=== PATIENT | female | born 1970 | race Caucasian/White ===

== ENCOUNTER 2020-04-05 15:46 | Emergency (ER) | payer SELFPAY ==
[2020-04-05] MEDS ORDERED: SODIUM CHLORIDE 0.9% (FLUSH) 10 ML SYG IV PRN (16:01)
--- NOTE | 2020-04-05 16:09 | ED.PDOC ---
History of Present Illness - General Chief Complaint: Blood Pressure Problem Stated Complaint: elevated BP,swelling in hands and feet Time Seen by Provider: 04/05/20 15:53 - History of Present Illness Initial Comments: 42-year-old female without significant past medical history presents with a week of swelling to arms and legs, low energy, not feeling well and now has noticed elevated blood pressures over the last 2 days. Denies chest pain. No prior history of hypertension requiring medication treatment. No sick contacts, no fever cough or recent travel. Allergies/Adverse Reactions: Allergies Meperidine Allergy (Verified 04/05/20 15:57) Home Medications: Ambulatory Orders Hydrochlorothiazide 25 mg PO DAILY #30 tab 04/05/20 Lisinopril 20 mg PO DAILY #30 tab 04/05/20 Review of Systems - Review of Systems Review of Systems: 04/05/20 16:08 General: Denies generalized weakness, fever, arthralgia/myalgia HEENT: Denies sore throat, rhinorrhea Cardiovascular: Denies chest pain, palpitations Respiratory: has SOB, no cough Gastrointestinal: Denies abdominal pain, vomiting, diarrhea : Denies dysuria, frequency Musculoskeletal: Denies extremity pain, has extremity swelling Integument: Denies rash, itching Neuro: Denies focal weakness or numbness Psych: Denies depression, hallucinations. Past Medical History (General) - Patient Medical History Hx Seizures: No Hx Stroke: No Hx Congestive Heart Failure: No Hx Thyroid Disease: No Hx Diabetes: No Surgical History: cholecystectomy - Vaccination History Hx Influenza Vaccination: No - Social History Hx Tobacco Use: Yes Hx Alcohol Use: Yes - twice a year Hx Substance Use: Yes - "weed" Hx Substance Use Treatment: No Hx Depression: No - Female History Patient : No - tubal ligation Family Medical History - Family History Mother Living Status: Still Living Hx Family Hypertension: Yes Hx Family;Other: arthritis Father Family History: Unknown Living Status: Still Living Physical Exam - Physical Exam Comments: General Appearance: Patient is awake and alert. Skin: Warm and dry. No diaphoresis. No rash or other lesions. Head: Normocephalic/atraumatic. Eyes: PERRL, lids, conjunctiva and sclera unremarkable. EOMI intact. ENT: No nasal discharge. Oropharynx. Without erythema, exudate, lesions. Moist mucous membranes. Neck: Supple. No LAD. No tenderness. No JVD noted. Respiratory: Normal rate and effort. Breath sounds clear bilaterally. Cardiovascular: Regular rate. Heart sounds normal. No murmur. GI: Abdomen soft, non-distended and non-tender. No rebound/guarding. Bowel sounds normal. Back: No tenderness Musculoskeletal: Extremities- Normal range of motion. No effusion, cyanosis, 1+ edema to hands, ankles. Neurological: Alert. No facial palsy. Speech clear. Gag intact. No motor deficit, str symmetric. No sensory deficit. Progress - Progress Progress: 04/05/20 17:35 Vital Signs - 24 hr 04/05/20 04/05/20 04/05/20 15:53 16:31 17:00 Temperature 97.9 F Pulse Rate [ 97 H 90 87 Right Brachial] Respiratory 20 22 Rate Blood Pressure 169/119 145/99 [Right Arm] O2 Sat by Pulse 97 98 Oximetry 04/05/20 16:01 Sodium Chloride 0.9% (Flush) [Saline Flush Syringe] 3 ml IV PRN PRN 04/05/20 16:02 IV Care:Saline Lock per Protoc QSHIFT 04/05/20 16:15 EKG STAT 04/06/20 09:00 Pulse Ox Daily Laboratory Results WBC 11.0 K/mm3 (4.8-10.8) H 04/05/20 16:02 RBC 4.83 M/mm3 (4.20-5.40) 04/05/20 16:02 Hgb 13.6 gm/dL (12.0-16.0) 04/05/20 16:02 Hct 40.7 % (36.0-47.0) 04/05/20 16:02 MCV 84.4 fl (81.0-99.0) 04/05/20 16:02 MCH 28.1 pg (27.0-31.0) 04/05/20 16:02 MCHC 33.3 g/dL (33.0-37.0) 04/05/20 16:02 RDW 15.6 % (11.5-14.5) H 04/05/20 16:02 Plt Count 380 K/mm3 (130-400) 04/05/20 16:02 MPV 6.4 fl (7.40-10.4) L 04/05/20 16:02 Absolute Neuts (auto) 7.20 K/uL (1.8-6.8) H 04/05/20 16:02 Absolute Lymphs (auto) 2.80 K/uL (1.0-3.4) 04/05/20 16:02 Absolute Monos (auto) 0.70 K/uL (0.2-0.8) 04/05/20 16:02 Absolute Eos (auto) 0.10 K/uL (0.0-0.4) 04/05/20 16:02 Absolute Basos (auto) 0.20 K/uL (0.0-0.1) H 04/05/20 16:02 Neutrophils % 65.1 % (42.0-78.0) 04/05/20 16:02 Lymphocytes % 25.4 % (20.0-50.0) 04/05/20 16:02 Monocytes % 6.3 % (2.0-9.0) 04/05/20 16:02 Eosinophils % 1.0 % (1.0-5.0) 04/05/20 16:02 Basophils % 2.2 % (0.0-2.0) H 04/05/20 16:02 PT 10.3 SECONDS (9.0-10.9) 04/05/20 16:02 INR 1.04 (0.9-1.15) 04/05/20 16:02 PTT (SP) 19.6 SECONDS (21.8-31.6) L 04/05/20 16:02 Sodium 137 mmol/L (135-145) 04/05/20 16:02 Potassium 3.9 mmol/L (3.6-5.0) 04/05/20 16:02 Chloride 104 mmol/L (101-111) 04/05/20 16:02 Carbon Dioxide 25 mmol/L (21-31) 04/05/20 16:02 Anion Gap 11.9 (12-18) L 04/05/20 16:02 BUN 7 mg/dL (7-18) 04/05/20 16:02 Creatinine 0.56 mg/dL (0.6-1.3) L 04/05/20 16:02 BUN/Creatinine Ratio 12.5 (10-20) 04/05/20 16:02 Random Glucose 103 mg/dL (70-105) 04/05/20 16:02 Serum Osmolality 272.0 mOsm/L (275-295) L 04/05/20 16:02 Calcium 8.9 mg/dL (8.4-10.2) 04/05/20 16:02 Magnesium 1.9 mg/dL (1.8-2.5) 04/05/20 16:02 Total Bilirubin 0.5 mg/dL (0.2-1.0) 04/05/20 16:01 Direct Bilirubin < 0.1 mg/dL (0-0.2) 04/05/20 16: Indirect Bilirubin 0.4 mg/dL (0.2-0.8) 04/05/20 16:01 AST 34 IU/L (10-42) 04/05/20 16:01 ALT 33 IU/L (10-60) 04/05/20 16:01 Alkaline Phosphatase 83 IU/L (42-121) 04/05/20 16:01 Creatine Kinase 63 IU/L (26-140) 04/05/20 16:02 CK-MB (CK-2) 2.1 ng/mL (0.0-4.4) 04/05/20 16:02 CK-MB (CK-2) % Not Reportable 04/05/20 16:02 Troponin I < 0.02 ng/mL (0.01-0.05) 04/05/20 16:02 B-Natriuretic Peptide 22.4 pg/ml (0-100) 04/05/20 16:01 Serum Total Protein 7.4 gm/dL (6.4-8.2) 04/05/20 16:01 Albumin 3.6 g/dl (3.2-5.5) 04/05/20 16:01 Urine Color Yellow (Yellow) 04/05/20 17:00 Urine Appearance Clear (Clear) 04/05/20 17:00 Urine pH 6.0 (4.5-7.8) 04/05/20 17:00 Ur Specific [place] 1.025 (1.005-1.030) 04/05/20 17:00 Urine Protein Negative mg/dL 04/05/20 17:00 Urine Glucose (UA) Negative mg/dL (Negative) 04/05/20 17:00 Urine Ketones Negative mg/dL (NEGATIVE) 04/05/20 17:00 Urine Blood Trace-lysed (Negative) H 04/05/20 17:00 Urine Nitrite Negative 04/05/20 17:00 Urine Bilirubin Negative (NEGATIVE) 04/05/20 17:00 Urine Urobilinogen 0.2 mg/dL (0.2-1.0) 04/05/20 17:00 Ur Leukocyte Esterase Negative (Negative) 04/05/20 17:00 Urine RBC 0-1 /hpf 04/05/20 17:00 Urine WBC 0-1 /hpf 04/05/20 17:00 Ur Epithelial Cells 1-3 /hpf 04/05/20 17:00 Urine Bacteria 0 04/05/20 17:00 Urine Mucus Trace 04/05/20 17:00 Safety Stop Patient feels better. VS, exam remain reassuring. Labs, imaging are without acute abnormality. I have discussed findings, diff dx, plan of care, need for follow-up, and reasons to return to the ED. Safety Stop (Diagnostic Time-Out): Tachycardia: No Diagnostic Studies: Reviewed Diagnostic Certainty: low, d/w patient Patient/family feels safe with discharge: Yes - EKG/XRAY/CT EKG: Sinus - 85, nonspecific ST T wave Chg XRAY: chest Xray Comments: no acute cardiopulm abnl Departure - Departure Clinical Impression: Hypertension, Edema, Myalgia Time of Disposition: 17:37 Disposition: Discharge to Home or Self Care Condition: Good Departure Forms: ED Discharge - Pt. Copy, Patient Portal Self Enrollment Instructions: DI for High Blood Pressure Diet: low salt diet Activity: increase activity as tolerated Prescriptions: Hydrochlorothiazide 25 mg PO DAILY #30 tab Lisinopril 20 mg PO DAILY #30 tab Home Medications: Ambulatory Orders Hydrochlorothiazide 25 mg PO DAILY #30 tab 04/05/20 Lisinopril 20 mg PO DAILY #30 tab 04/05/20 Comments: Josué Nieto MD Emergency Medicine #[id number]
--- NOTE | 2020-04-05 16:22 | RAD ---
EXAM DESCRIPTION: Chest, x-ray 1 View CLINICAL HISTORY: chest pain, swelling COMPARISON: None FINDINGS: Cardiac silhouette is within normal limits. There is no focal parenchymal or pleural disease. There is no acute osseous process visualized. IMPRESSION: No evidence of acute cardiopulmonary disease. Electronically signed by: Yo Alberto MD 04/05/2020 4:20 PM CDT
[2020-04-05] MEDS: LISINOPRIL 10 MG TAB PO ONE (16:32)
[2020-04-05 17:55] VITALS: BP 169/98; TEMP 97.8; O2SAT 96
== END 2020-04-05 17:54 | disposition home or self-care (01) ==
LOC: ER 15:46
DX: I10 Essential (primary) hypertension (principal); R60.9 Edema, unspecified; M79.10 Myalgia, unspecified site; R06.02 Shortness of breath; Z79.899 Other long term (current) drug therapy; F17.200 Nicotine dependence, unspecified, uncomplicated

== ENCOUNTER → 2020-05-29 | Outpatient (CLI) | payer OTHER | LOC: YCFC.O 10:15 | PROVIDERS: ATTEND Nurse Practitioner | DX: Z03.818 Encounter for observation for suspected exposure to other biological agents ruled out (principal) ==